=== PATIENT | male | born 1955 | race African-American/Black ===

== ENCOUNTER 2025-07-19 14:24 | Emergency (ER) | payer OTHER, SELFPAY ==
[2025-07-19] VITALS (7 sets, daily range): BP systolic 112–121; BP diastolic 79–89; PULSE 79–93; RESP 14–20; TEMP 36.5–36.7; O2SAT 94–100
--- NOTE | ~2025-07-19 | XR_ITS ---
EXAMINATION: XR chest 2V DATE: 07/19/2025 17:27 INDICATION: Near syncope. TECHNIQUE: Frontal and lateral views of the chest were obtained. COMPARISON: None. FINDINGS: Heart size is normal. Lungs are clear of acute process. Moderate atherosclerotic aorta. IMPRESSION: 1. No acute findings in the PA and lateral views. Reviewed, dictated and finalized at location T. SIFIED ADVERTISING SUPERVISOR
--- NOTE | ~2025-07-19 | CT_ITS ---
EXAMINATION: CT brain wo katalina, 07/19/2025 17:30 BOILER MAKER HISTORY: lightheaded, near syncope COMPARISON: No comparisons available. Technique: Axial images obtained of the brain without contrast. One or more of the following dose reduction techniques were used: automated exposure control, adjustment of the mA and/or kV according to patient size, use of iterative reconstruction technique. Findings: No acute infarct or parenchymal hemorrhage. No abnormal mass or mass effect. No midline shift. No extra-axial fluid collections. No hydrocephalus. Mastoid air cells unremarkable. Sinuses and orbits unremarkable. No acute fracture. No significant facial or scalp soft tissue swelling evident. No radiopaque foreign body is seen. Impression: 1.No acute intracranial abnormality. Reviewed, dictated and finalized at location P. ER MAKER Impression: 1.No acute intracranial abnormality.
--- NOTE | 2025-07-19 16:56 | ED_ITS ---
HPI - Dizziness General Chief Complaint: Dizziness <JAVIER Patel Last Filed: 07/19/25 17:08> Stated Complaint: feeling faint <JAVIER Patel Last Filed: 07/19/25 17:08> Time Seen by Provider: 07/19/25 16:56 <JAVIER Patel Last Filed: 07/19/25 17:08> Focused HPI: Patient is a 70 y/o male who presents to the ED with c/o dizziness/lightheadedness. Patient states he felt somewhat weak and lightheaded walking up his inclined driveway this afternoon. He then was standing over his bed folding clothes around 150pm when he suddenly became very lightheaded and fell backwards into a chair. He did not hit his head. [place] as though he was about to pass out. Does not believe he fully lost consciousness. checked his vitals at that time - BP 127/98, HR 104. Patient still feels somewhat lightheaded currently. Does not feel completely back to his baseline. Denied CP, SOB, palpitations, focal weakness/numbness, vision changes. GENERAL: Well-appearing, well-nourished, and in no acute distress. HEAD: Normocephalic, atraumatic. CHEST: Clear to auscultation. ?No respiratory distress. HEART: Regular rate and rhythm.? NEURO: ?Alert and oriented x3. Equal ceo and founder strength bilaterally. Strength 5 of 5 in upper and lower extremities bilaterally. No pronator drift. Patient screened in triage and initial orders placed.? ?Additional care and disposition to be based upon?diagnostic testing and treatment. <JAVIER Patel Last Filed: 07/19/25 17:08> Source: patient <JAVIER Patel Last Filed: 07/19/25 17:08> Mode of arrival: ambulatory <JAVIER Patel Last Filed: 07/19/25 17:08> Limitations: no limitations <JAVIER Patel Last Filed: 07/19/25 17:08> History of Present Illness HPI Narrative: patient is a 62-year-old gentleman presents emergency department chief complaint of dizziness. Patient reports that he had an episode where he felt lightheaded and lean forward then he fell but records and sent down a chair the patient reports no syncope reports his blood pressure was 127 systolic and reports that his heart rate was 100 for the patient denied chest pain denied shortness of breath <Ulisses Burns MD - Last Filed: 07/19/25 21:28> Related Data Allergies/Adverse Reactions: Allergies Allergy/AdvReac Type Severity Reaction Status Date / Time No Known Allergies Allergy Verified 07/19/25 20:06 <Rebecca Johnson PA-C - Last Filed: 07/19/25 17:08> Review of Systems 2 Review of Systems: my A 10 system review of systems was completed on the patient and is negative except for what is stated in the HPI. Nursing and ancillary documentation was reviewed. <Ulisses Burns MD - Last Filed: 07/19/25 21:28> Exam 2 Narrative: GENERAL: Well-appearing, well-nourished, and in no acute distress. HEAD: Normocephalic, atraumatic. EYES: PERRLA and EOMI. ENT: Nares clear, no rhinorrhea or epistaxis. Mucous membranes moist. NECK: Supple. CHEST: Clear to auscultation. No respiratory distress. HEART: Regular rate and rhythm. No murmur heard. Normal peripheral pulses. ABDOMEN: Soft, nontender, nondistended, normal active bowel sounds. EXTREMITIES: Normal range of motion. No edema. SKIN: Warm, dry, no rash. NEURO: No focal deficits. Alert and oriented x3. PSYCH: Normal mood and affect. <Ulisses Burns MD - Last Filed: 07/19/25 21:28> Course Vital Signs Vital signs: Vital Signs Temperature 36.6 C 07/19/25 14:39 Pulse Rate 89 07/19/25 14:39 Respiratory Rate 18 07/19/25 14:39 Blood Pressure 117/82 07/19/25 14:39 Pulse Oximetry 98 07/19/25 14:39 Temperature 36.7 C 07/19/25 19:32 Pulse Rate 93 07/19/25 20:19 Respiratory Rate 20 07/19/25 20:19 Blood Pressure 112/89 07/19/25 20:19 Pulse Oximetry 94 07/19/25 20:19 <Rebecca Johnson PA-C - Last Filed: 07/19/25 17:08> Vital Signs Temperature 36.6 C 07/19/25 14:39 Pulse Rate 89 07/19/25 14:39 Respiratory Rate 18 07/19/25 14:39 Blood Pressure 117/82 07/19/25 14:39 Pulse Oximetry 98 07/19/25 14:39 Temperature 36.7 C 07/19/25 19:32 Pulse Rate 93 07/19/25 20:19 Respiratory Rate 20 07/19/25 20:19 Blood Pressure 112/89 07/19/25 20:19 Pulse Oximetry 94 07/19/25 20:19 <Ulisses Burns MD - Last Filed: 07/19/25 21:28> MDM - Dizziness MDM Narrative Medical decision making narrative: MSE by KATELYN in triage. <Rebecca Johnson PA-C - Last Filed: 07/19/25 17:08> MSE by KATELYN in triage. differential diagnosis includes vertigo, TIA, electrolyte abnormality, dehydration, troponin was negative BNP is normal CT head showed no acute findings chest x- ray showed no focal infiltrate EKG showed no acute ischemic changes or dysrhythmia <Ulisses Burns MD - Last Filed: 07/19/25 21:28> Lab Data Result diagrams: 07/19/25 19:22 07/19/25 19:22 <Rebecca Johnson PA-C - Last Filed: 07/19/25 17:08> Labs: Lab Results 07/19/25 Range/Units 19:22 WBC 8.8 (4.5-10.0) K/mm3 RBC 5.18 (4.6-6.20) M/mm3 Hgb 15.3 (14.0-18.0) g/dL Hct 47.9 (42.0-52.0) % MCV 92.5 (80-100) fl MCH 29.5 (26-34) pg MCHC 31.9 L (32-36) g/dl RDW 15.0 H (11.5-14.5) % Plt Count 332 (150-375) k/mm3 MPV 9.3 (7.4-10.4) fl Immature Gran % (Auto) 0.2 (0-0.5) % Neut % (Auto) 60.9 (45.5-73.1) % Lymph % (Auto) 29.4 (18.3-44.2) % Jenkins % (Auto) 6.8 (2.6-8.5) % Eos % (Auto) 1.9 (0-4.4) % Baso % (Auto) 0.8 (0.2-1.2) % Lymph # (Auto) 2.58 (0.9-3.2) K/mm3 Jenkins # (Auto) 0.6 (0.1-0.6) K/mm3 Eos # (Auto) 0.2 (0-0.3) K/mm3 Baso # (Auto) 0.1 (0.0-0.1) K/mm3 Abs Immat Gran (auto) 0.02 (0.00-0.031) K/mm3 Absolute Neuts (auto) 5.4 (1.3-6.7) K/mm3 Absolute Nucleated RBC 0.000 (0.0-0.012) K/mm3 Nucleated RBC % 0.0 (0.0-0.2) % PT 12.6 (11.1-14.7) Seconds INR 0.9 APTT 26.5 (22.3-36.8) Seconds Sodium 136 L (137-145) mmol/L Potassium 4.8 (3.4-5.0) mmol/L Chloride 101 (98-107) mmol/L Carbon Dioxide 25 (22-30) mmol/L Anion Gap 10 (4-12) mmol/L BUN 14 (9-20) mg/dL Creatinine 1.21 (0.7-1.3) mg/dL Estim Creat Clear Calc 59 ml/min Estimated GFR 60 (59 - ) Glucose 109 (65-110) mg/dL Calcium 9.2 (8.4-10.2) mg/dL Magnesium 2.5 H (1.6-2.3) mg/dL Total Bilirubin 0.7 (0.2-1.3) mg/dL AST 35 (17-59) U/L ALT 26 (6-50) U/L Alkaline Phosphatase 66 (38-126) U/L Troponin I < 0.012 (0.000-0.034) ng/mL NT-Pro-B Natriuret Pep < 20 (19.9-100) pg/mL Total Protein 8.2 (6.3-8.2) g/dL Albumin 4.5 (3.5-5.1) g/dL <Rebecca Johnson PA-C - Last Filed: 07/19/25 17:08> Lab Results 07/19/25 Range/Units 19:22 WBC 8.8 (4.5-10.0) K/mm3 RBC 5.18 (4.6-6.20) M/mm3 Hgb 15.3 (14.0-18.0) g/dL Hct 47.9 (42.0-52.0) % MCV 92.5 (80-100) fl MCH 29.5 (26-34) pg MCHC 31.9 L (32-36) g/dl RDW 15.0 H (11.5-14.5) % Plt Count 332 (150-375) k/mm3 MPV 9.3 (7.4-10.4) fl Immature Gran % (Auto) 0.2 (0-0.5) % Neut % (Auto) 60.9 (45.5-73.1) % Lymph % (Auto) 29.4 (18.3-44.2) % Jenkins % (Auto) 6.8 (2.6-8.5) % Eos % (Auto) 1.9 (0-4.4) % Baso % (Auto) 0.8 (0.2-1.2) % Lymph # (Auto) 2.58 (0.9-3.2) K/mm3 Jenkins # (Auto) 0.6 (0.1-0.6) K/mm3 Eos # (Auto) 0.2 (0-0.3) K/mm3 Baso # (Auto) 0.1 (0.0-0.1) K/mm3 Abs Immat Gran (auto) 0.02 (0.00-0.031) K/mm3 Absolute Neuts (auto) 5.4 (1.3-6.7) K/mm3 Absolute Nucleated RBC 0.000 (0.0-0.012) K/mm3 Nucleated RBC % 0.0 (0.0-0.2) % PT 12.6 (11.1-14.7) Seconds INR 0.9 APTT 26.5 (22.3-36.8) Seconds Sodium 136 L (137-145) mmol/L Potassium 4.8 (3.4-5.0) mmol/L Chloride 101 (98-107) mmol/L Carbon Dioxide 25 (22-30) mmol/L Anion Gap 10 (4-12) mmol/L BUN 14 (9-20) mg/dL Creatinine 1.21 (0.7-1.3) mg/dL Estim Creat Clear Calc 59 ml/min Estimated GFR 60 (59 - ) Glucose 109 (65-110) mg/dL Calcium 9.2 (8.4-10.2) mg/dL Magnesium 2.5 H (1.6-2.3) mg/dL Total Bilirubin 0.7 (0.2-1.3) mg/dL AST 35 (17-59) U/L ALT 26 (6-50) U/L Alkaline Phosphatase 66 (38-126) U/L Troponin I < 0.012 (0.000-0.034) ng/mL NT-Pro-B Natriuret Pep < 20 (19.9-100) pg/mL Total Protein 8.2 (6.3-8.2) g/dL Albumin 4.5 (3.5-5.1) g/dL <Ulisses Burns MD - Last Filed: 07/19/25 21:28> Discharge Plan Discharge Clinical Impression: Dizziness <Rebecca Johnson PA-C - Last Filed: 07/19/25 17:08> Patient Disposition: Home <Rebecca Johnson PA-C - Last Filed: 07/19/25 17:08> Condition: Stable <JAVIER Patel Last Filed: 07/19/25 17:08> Instructions: Antibiotic Form, Dizziness (ED) <JAVIER Patel Last Filed: 07/19/25 17:08> Patient Language: Arabic <Rebecca Johnson PA-C - Last Filed: 07/19/25 17:08> Prescriptions: New meclizine 25 mg tablet 25 mg PO TID PRN (Reason: dizziness) Qty: 30 0RF <Rebecca Johnson PA-C - Last Filed: 07/19/25 17:08> Follow-up/Referrals: PHYSICIAN,VICE PRESIDENT OF MANUFACTURING [Primary Care Provider, Internal Medicine] Amado Garcia MD [Physician, Family Practice] <Rebecca Johnson PA-C - Last Filed: 07/19/25 17:08>
--- NOTE | 2025-07-19 17:01 | ECG_ITS ---
Test Date: 2025-07-19 20:07:53 Measurements Intervals [place] Rate: 78 P: 58 FL: 152 QRS: 67 QRSD: 73 T: 66 QT: 369 QTc: 422 Interpretive Statements SINUS RHYTHM No previous ECG available for comparison Electronically Signed On 07-19-2025 22:32:28 MANAGER MASS by Ben Piedra D.O
[2025-07-19 19:27] LABS: Hematocrit 47.9 % (42.0-52.0); Hemoglobin 15.3 g/dL (14.0-18.0); Immature Granulocyte Percent A 0.2 % (0-0.5); Lymphocytes Absolute Auto 2.58 K/mm3 (0.9-3.2); Mean Corpuscular HGB Conc 31.9 g/dl (32-36); Mean Corpuscular Hemoglobin 29.5 pg (26-34); Mean Corpuscular Volume 92.5 fl (80-100); Nucleated Red Blood Cells Absolute Auto 0.000 K/mm3 (0.0-0.012); Nucleated Red Blood Cells Perc 0.0 % (0.0-0.2); Platelet Count Result 332 k/mm3 (150-375); Red Blood Count 5.18 M/mm3 (4.6-6.20); White Blood Count 8.8 K/mm3 (4.5-10.0)
[2025-07-19 19:37] LABS: INR 0.9; Prothrombin Time 12.6 Seconds (11.1-14.7)
[2025-07-19 19:39] LABS: Partial Thromboplastin Time 26.5 Seconds (22.3-36.8)
[2025-07-19 19:44] LABS: Alanine Aminotransferase 26 U/L (6-50); Albumin Level 4.5 g/dL (3.5-5.1); Alkaline Phosphatase 66 U/L (38-126); Anion Gap 10 mmol/L (4-12); Aspartate Amino Transferase 35 U/L (17-59); Bilirubin,Total 0.7 mg/dL (0.2-1.3); Blood Urea Nitrogen 14 mg/dL (9-20); Calcium 9.2 mg/dL (8.4-10.2); Carbon Dioxide 25 mmol/L (22-30); Chloride 101 mmol/L (98-107); Estimated CRCL calculation 59 ml/min; Estimated Glomerular Filt Rate 60; Glucose 109 mg/dL (65-110); Magnesium 2.5 mg/dL (1.6-2.3); Potassium 4.8 mmol/L (3.4-5.0); Sodium 136 mmol/L (137-145); Total Protein 8.2 g/dL (6.3-8.2)
[2025-07-19 19:51] LABS: NT Pro B Type Natriuretic Pept < 20 pg/mL (19.9-100); Troponin I < 0.012 ng/mL (0.000-0.034)
--- NOTE | 2025-07-19 20:05 | PC.NURSE ---
Dr. Burns at bedside talking with pt.
[2025-07-19] MEDS: Please add drug allergy info to patient profile. 1 EACH XX (20:12)
[2025-07-19] MEDS: MECLIZINE HCL 25 MG TABLET PO (20:12)
[2025-07-19] MEDS: SODIUM CHLORIDE 0.9% IV 1,000 ML 999 ML IV CONT (20:14)
--- NOTE | 2025-07-19 20:51 | PC.NURSE ---
Pt. ambulated in hallway with a steady gait. Pt. denies dizziness but states he feels foggy. Speech is clear, GCS 15.
== END 2025-07-19 22:01 | disposition home or self-care (01) ==
PROVIDERS: Physician Assistant; Emergency Provider Emergency Medicine
DX: R42 Dizziness and giddiness (principal); I70.0 Atherosclerosis of aorta
CPT/HCPCS: 36415; 70450; 71046; 80053; 83735; 83880; 84484; 85025; 85610; 85730; 93005; 96360; 99284; A9270; J7030